=== PATIENT | male | born 1970 | race Caucasian/White ===

== ENCOUNTER 2019-06-01 07:59 | Emergency (ER) | payer OTHER, BC ==
[2019-06-01 08:10] VITALS: BP 140/74
--- NOTE | 2019-06-01 08:12 | UC ---
Ear Complaint HPI - HPI Summary HPI Summary: Patient is a 49yo male presenting with decreased hearing in the left ear x1 week. Denies pain. Patient states the right ear was muffled as well but cleared up after the first day. Does note having a recent cold. States he took a decongestant for 2 days last week without relief so he "thinks it might be wax build up." Notes "some ringing in the ear at times." Denies drainage from the ear. Denies fever and chills. - History of Current Complaint Stated Complaint: EAR PROBLEM Hx Obtained From: Patient Pain Intensity: 0 - Allergies/Home Medications Allergies/Adverse Reactions: Allergies Allergy/AdvReac Type Severity Reaction Status Date / Time No Known Allergies Allergy Verified 06/01/19 08:10 Home Medications: Home Medications Naproxen Sodium [Aleve] 2 tab PO DAILY PRN 01/07/16 [History Confirmed 06/01/19] Buspirone HCl 1 tab PO DAILY 06/01/19 [History Confirmed 06/01/19] Ezetimibe 1 tab PO DAILY 06/01/19 [History Confirmed 06/01/19] Rivaroxaban TAB(*) [Xarelto 15 mg(*)] 15 mg PO DAILY 06/01/19 [History Confirmed 06/01/19] PMH/Surg Hx/FS Hx/Imm Hx - Surgical History Surgical History: Yes Surgery Procedure, Year, and Place: GALLBLADDER-2013 - Family History Known Family History: Positive: Hypertension - DAD, Blood Disorder - DAD - BILATERAL DVTs IN ADULTHOOD - Social History Alcohol Use: Occasionally Alcohol Amount: 3-4 BEERS WEEKLY Substance Use Type: None Smoking Status (MU): Never Smoked Tobacco Review of Systems All Other Systems Reviewed And Are Negative: Yes Constitutional: Positive: Negative ENT: Positive: Sinus Congestion, Other - decreased hearing left ear. Negative: Ear Ache Respiratory: Positive: Negative Cardiovascular: Positive: Negative Gastrointestinal: Positive: Negative Musculoskeletal: Positive: Negative Neurological/Mental Status: Positive: Negative Physical Exam - Summary Physical Exam Summary: Vital Signs Reviewed: Yes A+Ox3, no distress Eyes: Conjunctiva Clear ENT: Hearing grossly normal, right TM clear and intact, left TM intact with small effusion, no bulging or erythema, +nasal congestion neck: supple Respiratory: Positive: No respiratory distress, No accessory muscle use Cardiovascular: skin color reflect adequate perfusion Musculoskeletal Exam: REYES x 4 without difficulty Neurological: Positive: Alert, ambulatory without difficulty Psychological: Positive: age appropriate behavior Skin: Positive: no rash, no ecchymosis Vital Signs: Initial Vital Signs Temp 98.2 F 06/01/19 08:05 Pulse 74 06/01/19 08:05 Resp 18 06/01/19 08:05 BP 140/74 06/01/19 08:05 Pulse Ox 97 06/01/19 08:05 Ear Complaint Course/Dx - Course Course Of Treatment: Discussed serous otitis media with the patient and that there are no signs of infection. Instructed to continue with otc decongestant to help alleviate symptoms. Instructed to follow up with pcp if symptoms persist or worsen. - Differential Dx/Diagnosis Provider Diagnosis: Acute serous otitis media, left ear Discharge ED - Sign-Out/Discharge Documenting (check all that apply): Patient Departure All imaging exams completed and their final reports reviewed: No Studies - Discharge Plan Condition: Stable Disposition: HOME Patient Education Materials: Serous Otitis Media (ED) Referrals: Gurmeet Duff MD [Primary Care Provider] - If Needed Additional Instructions: You make continue to take an over the counter decongestant for your symptoms. Follow up with your primary care provider if symptoms persist or worsen. - Billing Disposition and Condition Condition: STABLE Disposition: Home
== END 2019-06-01 08:25 | disposition home or self-care (01) ==
LOC: UCEAST 07:59
DX: H65.02 Acute serous otitis media, left ear (principal)
CPT/HCPCS: 99211; G0463